=== PATIENT | female | born 1950 | race Caucasian/White ===

== ENCOUNTER 2020-07-01 06:21 | Day surgery (SDC) | payer MEDICARE, OTHER ==
[~2020-07-01] VITALS: Ht 165.1 cm; Wt 67.3 kg
[2020-07-01] MEDS ORDERED: PRINIVIL10 MG PO (09:33)
[2020-07-01] MEDS ORDERED: ZOCOR 40MG40 MG PO (09:34)
[2020-07-01] MEDS ORDERED: DIABETA 5MG5 MG/TAB PO (09:34)
[2020-07-01] MEDS ORDERED: GLUCOPHAGE XR500 M1 PO (09:35)
[2020-07-01] MEDS ORDERED: JARDIANCE10 PO (09:37)
[2020-07-01] MEDS ORDERED: NATURE'S BLEND160 MG PO (09:38)
[2020-07-01] MEDS ORDERED: MULTIVITAMIN SEN PO (09:39)
[2020-07-01] MEDS ORDERED: NATURE'S BLEND500 M1 PO (09:39)
--- NOTE | 2020-07-01 11:08 | NUR ---
Initial visit; Patient and her thanked [employer] for offering prayer for [place]en prior to her surgical procedure.
--- NOTE | 2020-07-01 11:15 | NUR ---
Patient up to restroom without any complications.
[2020-07-01 11:20] VITALS: BP 110/59; PULSE 88; TEMP 98.8
[2020-07-01 14:30] VITALS: BP 121/52; PULSE 93; TEMP 98
--- NOTE | 2020-07-01 14:30 | NUR ---
The patient arrived back to [facility] from the recovery room at this time. The patient appears alert and oriented and denies any pain or nausea at this time. The patient's post operative vital signs were started at this time. The patient's has two incisions to her right breast and right axilla both are without redness or edema and covered with surgical glue. The patient requests to try some apple juice and a muffin at this time. The patient's is at her bedside. Will continue to monitor the patient.
[2020-07-01 14:45] VITALS: BP 111/54; PULSE 94
--- NOTE | 2020-07-01 14:45 | NUR ---
The patient appears to be tolerating the food and drink well. remains at her bedside. Vital signs appear stable. Will continue to monitor the patient.
[2020-07-01] MEDS ORDERED: MOTRIN 600600 MG/TAB PO (14:52)
[2020-07-01] MEDS ORDERED: NORCO 325 MG-51 TAB PO (14:53)
[2020-07-01 15:00] VITALS: BP 111/56; PULSE 98
--- NOTE | 2020-07-01 15:00 | NUR ---
The patient has finished her food and drink and appeared to tolerate them well. The patient continue to deny any pain or nausea. Call light is within reach. Will continue to montior the patient.
[2020-07-01 15:15] VITALS: BP 105/57; PULSE 97
--- NOTE | 2020-07-01 15:15 | NUR ---
The patient ambulated to the bathroom with the stand by assistance of one nurse and appeared to tolerate the activity well. The patient voided without difficulty and voices a desire to be discharge home. The nurse instructed the patient to get dressed and notify the staff when she is ready to review her discharge paperwork.
--- NOTE | 2020-07-01 15:30 | NUR ---
Discharge instructions were reviewed with the patient and her at this time. They both verbalized understanding and have no questions for the nurse at this time. The patient's IV to her left forearm was removed and a pressure dressing was applied to the site. The patient is dressed and ready to be escorted out.
--- NOTE | 2020-07-01 15:45 | NUR ---
The patient was escored out via wheelchair to a private vehicle by SHARLENE Benites. The patient's belongings and discharge paperwork were sent with her. The patient's is present to drive her home.
== END 2020-07-01 15:45 | disposition home or self-care (01) ==
LOC: SDCO 06:21
DX: D05.91 Unspecified type of carcinoma in situ of right breast (principal); E11.9 Type 2 diabetes mellitus without complications; I10 Essential (primary) hypertension; E78.5 Hyperlipidemia, unspecified; Z90.49 Acquired absence of other specified parts of digestive tract; Z85.3 Personal history of malignant neoplasm of breast; Z20.828 Contact with and (suspected) exposure to other viral communicable diseases; Z79.84 Long term (current) use of oral hypoglycemic drugs
CPT/HCPCS: A9541; J0690; J1100; J2250; J2370; J2405; J2704; J2795; J3010; J7030